=== PATIENT | male | born 1945 | race Caucasian/White ===

== ENCOUNTER 2016-09-23 09:20 | Outpatient (CLI) | payer OTHER, MEDICARE | END 2016-09-23 21:09 | disposition home or self-care (01) | LOC: SCT 09:20 | PROVIDERS: ATTEND Specialist | DX: Z11.1 Encounter for screening for respiratory tuberculosis (principal); M47.899 Other spondylosis, site unspecified; I77.819 Aortic ectasia, unspecified site; I25.10 Atherosclerotic heart disease of native coronary artery without angina pectoris; R05 Cough | CPT/HCPCS: 71250-TC ==

== ENCOUNTER 2021-09-11 07:59 | Day surgery (SDC) | payer OTHER, MEDICARE, SELFPAY ==
[2021-09-07 10:41] LABS: BASOPHILS % (AUTO) 0.5 % (0.0-2.0); EOSINOPHILS # (AUTO) 0.6 K/uL (0.0-0.4); HEMATOCRIT 48.9 % (36-54); HEMOGLOBIN 16.1 g/dL (14.0-18.0); MEAN CORPUSCULAR HEMOGLOBIN 30 pg (27-31); MEAN CORPUSCULAR HGB CONC 33 % (32-36); MEAN CORPUSCULAR VOLUME 91 fL (79.0-98.0); MONOCYTES # (AUTO) 0.9 K/uL (0.0-1.0); MONOCYTES % (AUTO) 13.2 % (1.7-9.3); NEUTROPHILS % (AUTO) 62.3 % (40.0-70.0); PLATELET COUNT (AUTO) 167 K/uL (130-430); RED BLOOD CELL COUNT(AUTO) 5.35 MIL/uL (4.2-6.2); RED CELL DISTRIBUTION WIDTH 13.9 % (9.0-15.0); WHITE BLOOD COUNT (AUTO) 6.4 K/uL (4.8-10.8)
[2021-09-07 11:26] LABS: ALANINE AMINOTRANSFERASE 29 U/L (12-78); ALBUMIN 3.4 g/dL (3.4-4.8); ANION GAP 7 (5-15); ASPARTATE AMINOTRANSFERASE 23 U/L (10-37); CALCIUM 8.1 mg/dL (8.4-11.0); CHLORIDE 103 mmol/L (98-107); CREATININE 0.84 mg/dL (0.55-1.30); GLUCOSE 105 mg/dL (70-99); POTASSIUM 4.3 mmol/L (3.5-5.1); SODIUM SERUM 138 mmol/L (136-145); TOTAL BILIRUBIN 0.6 mg/dL (0.0-1.0); UREA NITROGEN, BLOOD 18 mg/dL (8-21)
[~2021-09-11] VITALS: Ht 180.3 cm; Wt 96.2 kg
[2021-09-11] MEDS ORDERED: ACETAMINOPHEN 325 MG TABLET PO PRN (12:30)
[2021-09-11 13:27] VITALS: BP_SYST 125
[2021-09-11] MEDS ORDERED: ceFAZolin SODIUM 1 GM VIAL ONE (14:00)
[2021-09-11] MEDS ORDERED: LR 1,000 ML IV.SOLN IV ONE (14:00)
[2021-09-11] MEDS ORDERED: NS IRRIG SOLN 1000 ML IR ONE (14:00)
[2021-09-11] MEDS ORDERED: BUPIVACAINE /EPINEPHRINE/PF 0.25% 30 ML VIAL INJ ONE (14:00)
[2021-09-11] MEDS ORDERED: LIDOCAINE/EPI 1% 1:100000 20 ML VIAL INJ ONE (14:00)
== END 2021-09-11 13:05 | disposition home or self-care (01) ==
LOC: SMU 07:59 → SDS 07:59
PROVIDERS: ATTEND Surgery
DX: L72.0 Epidermal cyst (principal); D48.5 Neoplasm of uncertain behavior of skin; Z79.01 Long term (current) use of anticoagulants; Z79.899 Other long term (current) drug therapy; Z20.822 Contact with and (suspected) exposure to COVID-19
CPT/HCPCS: 11406; 36415 ×2; 71045; 80053; 85025; 85610; 85730; 87426; 88305; 93005; J0690; J3490; J7120; U0003

== ENCOUNTER 2021-10-10 09:13 | Outpatient (CLI) | payer OTHER, MEDICARE | END 2021-10-10 18:40 | disposition home or self-care (01) | LOC: SCT 09:13 | PROVIDERS: ATTEND Internal Medicine Cardiovascular Disease | DX: J98.4 Other disorders of lung (principal); F17.200 Nicotine dependence, unspecified, uncomplicated; R06.2 Wheezing; I25.10 Atherosclerotic heart disease of native coronary artery without angina pectoris; I77.810 Thoracic aortic ectasia; N28.1 Cyst of kidney, acquired; M47.814 Spondylosis without myelopathy or radiculopathy, thoracic region | CPT/HCPCS: 71250-TC; 76376 ==